=== PATIENT | male | born 1975 | race Caucasian/White ===

== ENCOUNTER 2018-03-01 20:33 | Emergency (ER) | payer OTHER ==
[~2018-03-01] VITALS: Ht 180.3 cm; Wt 86.2 kg
[2018-03-01] MEDS ORDERED: ASPIR 8181 MG (20:46)
[2018-03-01 21:00] LABS: ABSOLUTE EOSINOPHILS 0.1 thou/uL (0.0-0.7); ABSOLUTE LYMPHOCYTES 3.7 thou/uL (0.8-5.3); ABSOLUTE MONOCYTES 0.6 thou/uL (0.0-1.2); ABSOLUTE NEUTROPHILS 4.4 thou/uL (1.6-8.1); BASOPHILS 0.3 %; EOSINOPHILS 0.6 %; HEMOGLOBIN 15.9 gm/dL (14.0-18.0); LYMPHOCYTES 42.3 %; MCH 31.2 pg (26.0-34.0); MCHC 35.4 g/dL (28.0-37.0); MONOCYTES 6.9 %; MPV 7.8 fl. (7.2-11.1); NUCLEATED RBCS 0 /100WBC; PLATELET COUNT* 231 thou/uL (150-400); POLYS 49.9 %; RBC 5.11 mil/uL (4.50-6.00); RDW-CV 12.7 % (10.5-14.5); WBC 8.8 thou/uL (4.0-11.0)
[2018-03-01 21:06] LABS: ANION GAP 10 mmol/L (7-16); BUN 8 mg/dL (7-18); CALCIUM 8.2 mg/dL (8.5-10.1); CHLORIDE 104 mmol/L (98-107); CO2 25 mmol/L (21-32); CREATININE 1.1 mg/dL (0.6-1.3); GLUCOSE 154 mg/dL (70-99); SODIUM 139 mmol/L (136-145)
[2018-03-01 21:16] LABS: ALKALINE PHOSPHATASE 65 U/L (46-116); LIPASE 162 U/L (73-393); NT-PRO BRAIN NAT PEPTIDE 105 pg/mL (<300); SGOT 15 U/L (15-37); SGPT 26 U/L (30-65); TOTAL BILIRUBIN 0.5 mg/dL (<0.1-1.0); TOTAL PROTEIN 8.1 g/dL (6.4-8.2); TROPONIN-I LEVEL <0.06 ng/mL (<0.06)
[2018-03-01 21:35] LABS: INR 1.1; PROTIME 10.7 Seconds (9.20-11.50)
[2018-03-01] MEDS ORDERED: HYDROXYZINE HCL25 M1 PO (22:14)
[2018-03-01 22:44] VITALS: BP 125/77
--- NOTE | 2018-03-02 09:40 | EKG ---
[place] [address] ELECTROCARDIOGRAM REPORT Name: APOLLO PACHECO [id number] Admission: 03/01/18 Attend Phys: Discharge: 03/01/18 Date of : 75 Report #: [id number] THIS REPORT FOR: //name// [facility] ED Test Date: 2018-03-01 Test Time: 21:28:50 Pat Name: APOLLO PACHECO Department: Room: Gender: M Hospitalist: CLARE : 1975 Requested By: Gayle Sterling Order Number: [id number] MD: Kyle Owen Measurements Intervals [place] Rate: 75 P: 47 ME: 151 QRS: -17 QRSD: 110 T: 11 QT: 375 QTc: 419 Interpretive Statements Sinus rhythm Borderline left axis deviation No previous ECG available for comparison Electronically Signed On 03-02-2018 9:39:49 CDT by Kyle Owen [email or web address] <ELECTRONICALLY SIGNED> By: Kyle Owen MD, [facility] 03/02/18 [id number] [id number] Kyle Owen MD, FACC /EPI
== END 2018-03-01 22:46 | disposition home or self-care (01) ==
LOC: M.ERS 20:33
PROVIDERS: Emergency Medicine
DX: F41.9 Anxiety disorder, unspecified (principal); Z88.0 Allergy status to penicillin